=== PATIENT | female | born 1970 ===

== ENCOUNTER 2020-11-28 12:30 | Outpatient (CLI) | payer OTHER ==
--- NOTE | 2020-11-29 09:35 | Mammography Report ---
DIGITAL SCREENING MAMMOGRAM WITH CAD, 11/28/2020 CLINICAL INFORMATION / INDICATION: Routine screening mammography. SCREENING. Previous bilateral breas t biopsy. TECHNIQUE: Digital bilateral 2D mammography was obtained in the craniocaudal and mediolateral obliqu e projections. This examination was interpreted with the benefit of Computer-Aided Detection analysis . COMPARISON: 11/23/19, 11/17/18 FINDINGS: Breast Density: The breasts are heterogeneously dense, which may obscure small masses. No dominant mass, suspicious calcifications, or architectural distortion in either breast. Right breast biopsy marker is unchanged. Left breast post biopsy findings with benign-appearing calci fications appear stable. IMPRESSION: No mammographic evidence of malignancy. No significant change. Follow up recommendation: Routine yearly BI-RADS Category 2: Benign. A "normal" or negative report should not discourage follow up or biopsy of a clinically significant f inding. A written summary of these findings will be mailed to the patient. The patient will be entered into a mammography reporting system which will generate a reminder letter for the patient's next appointmen t at the appropriate interval. The [employer] recommends yearly mammograms starting at age 40 and continuing as l ramón as a woman is in good health. Breast MRI is recommended for women with an approximate 20-25% or greater lifetime risk of breast cancer, including women with a strong family history of breast or ova calvin cancer or who have been treated for Hodgkin's disease. Signer Name: Flaca Hampton MD Signed: 11/29/2020 9:30 AM Workstation Name: [id number]
== END 2020-11-28 12:31 | disposition home or self-care (01) ==
LOC: SPVWC 12:30
DX: Z12.31 Encounter for screening mammogram for malignant neoplasm of breast (principal)
CPT/HCPCS: 77067